=== PATIENT | male | born 1960 | race Two or more races ===

== ENCOUNTER 2016-12-07 12:44 | Day surgery (SDC) | payer OTHER ==
[2016-12-07] VITALS (7 sets, daily range): BP systolic 120–154; BP diastolic 72–92; PULSE 62–87; RESP 16–18; TEMP 97.6–98.4; O2SAT 95–99
[~2016-12-07] VITALS: Ht 170.2 cm; Wt 103.5 kg
[2016-12-07] MEDS ORDERED: ASPI81CH CHEW (13:33)
[2016-12-07] MEDS ORDERED: OMEP20TA PO (13:38)
[2016-12-07] MEDS ORDERED: ROSU1TAB10 PO (13:38)
[2016-12-07] MEDS ORDERED: CARV6.252 PO (13:38)
[2016-12-07] MEDS ORDERED: NITR0.4S SL (13:38)
[2016-12-07] MEDS ORDERED: RENATAB5 PO (13:38)
[2016-12-07] MEDS ORDERED: FURO80TA PO (13:38)
[2016-12-07] MEDS ORDERED: VITA100036 PO (13:38)
[2016-12-07] MEDS ORDERED: BRIL90TA PO (13:38)
[2016-12-07] MEDS ORDERED: SITA25 PO (13:38)
[2016-12-07] MEDS ORDERED: ROPI0.25 PO (13:38)
[2016-12-07] MEDS ORDERED: LOSA100T PO (13:38)
[2016-12-07] MEDS ORDERED: GABA600T PO (13:38)
[2016-12-07] MEDS ORDERED: HYDR-3801 PO (13:38)
[2016-12-07] MEDS ORDERED: ISOS30TA3 PO (13:38)
[2016-12-07] MEDS ORDERED: LYRI100C PO (13:38)
[2016-12-07 14:16] LABS: AUTOMATED NEUTROPHIL # 4.9 TH/MM3 (1.8-7.7); BASOPHIL # 0.1 TH/MM3 (0-0.2); EOSINOPHIL # 0.4 TH/MM3 (0-0.4); HEMATOCRIT 37.9 % (39.0-51.0); HEMO FLAGS DIFF FINAL; LYMPH % 21.4 % (9.0-44.0); LYMPHOCYTE # 1.7 TH/MM3 (1.0-4.8); MEAN CELL VOLUME 80.1 FL (80.0-100.0); MEAN CORPUSCULAR HEMOGLOBIN 25.4 PG (27.0-34.0); MEAN CORPUSCULAR HGB CONC 31.7 % (32.0-36.0); MONO % 10.8 % (0.0-8.0); NEUT % 61.8 % (16.0-70.0); PLATELET COUNT 205 TH/MM3 (150-450); RED BLOOD COUNT 4.73 MIL/MM3 (4.50-5.90); RED CELL DISTRIBUTION WIDTH 19.4 % (11.6-17.2); WHITE BLOOD COUNT 7.9 TH/MM3 (4.0-11.0)
[2016-12-07 14:28] LABS: PROTHROMBIN TIME - PATIENT 11.1 SEC (9.8-11.6)
[2016-12-07 14:31] LABS: BICARBONATE 33.1 MEQ/L (21.0-32.0); POTASSIUM 4.1 MEQ/L (3.5-5.1)
[2016-12-07] MEDS ORDERED: INSULIN HUMAN REGULAR 1,000 UNITS/10 ML VIAL SQ PRN (15:00)
[2016-12-07] MEDS ORDERED: METOPROLOL TARTRATE 25 MG TAB PO PRN (15:00)
[2016-12-07] MEDS ORDERED: LACTATED RINGER'S 1000 ML IV PRN (15:00)
[2016-12-07] MEDS ORDERED: POVIDONE IODINE 5% (ANTISEPSIS KIT) 4 APPLICATIONS EACH NARE PRN (15:00)
[2016-12-07] MEDS ORDERED: CHLORHEXIDINE GLUCONATE 2 % 1 PACK (2 CLOTHS) TOPICAL PRN (15:00)
[2016-12-07] MEDS ORDERED: NS 1000 ML IV SCH (15:00)
[2016-12-07] MEDS ORDERED: SODIUM CHLORID 0.9% 500 ML IV PRN (15:00)
[2016-12-07] MEDS ORDERED: CHLORHEXIDINE GLUCONATE 2 % 1 PACK (2 CLOTHS) TOPICAL SCH (15:00)
[2016-12-07] MEDS ORDERED: POVIDONE IODINE 5% (ANTISEPSIS KIT) 4 APPLICATIONS EACH NARE SCH (15:00)
[2016-12-07] MEDS ORDERED: ceFAZolin 2 GM PREMIX 50 ML IV SCH (15:00)
[2016-12-07] MEDS ORDERED: LORazepam 1 MG TAB SL SCH (15:00)
[2016-12-07] MEDS ORDERED: VANCOMYCIN 1000 MG/NS 250 ML IV SCH ×2 (15:00)
[2016-12-07] MEDS ORDERED: MUPIROCIN 2% OINT 1 APPLIC/GM SYR NASAL SCH (15:00)
[2016-12-07] MEDS ORDERED: PROPOFOL 200 MG/20 ML AMP IV ONE (15:37)
--- NOTE | 2016-12-07 16:38 | CATHPROC ---
Proton Therapy HIS Report Study Information Study Number Admission Scheduled Start Study Start [id number] Dec 07 2016 12:44PM 12/07/2016 Dec 07 2016 3:01PM [place] [facility] Electrophysiology Study Admit Source Facility Department Other [facility] - Housing Liaison Physician and Clinical Staff Initial Joselito Elizabeth V Belt Skiver Camuesandy, Kimberly,CAMPUS MONITOR Other Anesthesia, SENIOR FIREWALL ENGINEER Other Hosterman, Bridger,RT(R) Recorder Candi Sainz BSRPatricai Humphreyub Tariq WaldronRT(R) Equipment Time Red Cap Description Size Mfg Part Number Used/Scraped [id number] 15:50 Do It Original INDUSTRIES PACK, CCL CUSTOM * Used *[id number] 15:50 Do It Original PACER SALCEDO, LIMB * 2530 *[id number] Used [id number] 15:50 Contacts+ BLANKET,WARM AIR CCL * Used *[id number] [id number] 15:53 [employer] MED[employer] CATHETER, JSN, QUAD FR 5 Used *[id number] 15:53 [employer] MEDICAL CATHETER, JSN, QUAD FR 5 Used *[id number] 15:53 [employer] MEDICAL CATHETER, JSN, QUAD FR 5 Used *[id number] 15:54 [employer] MEDICAL CATHETER, JSN, QUAD FR 5 Used *[id number] [id number] 15:52 [employer] MEDICAL SHEATH, EPS, FR5 FAST CATH FR 5 Used *[id number] [id number] 15:52 [employer] SHEATH, EPS, FR5 FAST CATH FR 5 Used *[id number] 15:52 [employer] MED[employer] SHEATH, EPS, FR5 FAST CATH FR 5 Used *[id number] 15:52 [employer] MED[employer] SHEATH, EPS, FR6 FAST CATH FR 6 [id number] Used History: Current Medications Medication Dosage/Unit Route Frequency Last Date/Time Taken Statins (any) Beta Ronald ASA BRILLINTA CARVEDILOL LASIX HYDRALAZINE LYRICA Prevacid History: Allergies Allergy Reaction NKDA History: Risk Factors Family History of Hypertension Dyslipidemia Previous [place] Previous Heart Failure Premature CAD Yes Yes No Yes Yes Prior Valve Prior PCI Prior CABG Surgery No Yes No Cerebrovascular Peripheral Artery Chronic Lung On Dialysis Diabetes Diabetes Therapy Disease Disease Disease Yes No No Yes Yes Insulin History: Risk Factors Selection Items Diabetes Hyperlipidemia Prev Perc Coronary Intervention History: CV Disease Selection Items Cardiomyopathy History: Other Disease Selection Items CAD CHF HTN Renal Failure-Dialysis Labs Hgb (g/dl) Hct (%) RBC (MIL/MM3) WBC (l/cumm) Platelets (thousands) 11.60-17.00 35.00-51.00 4.00-5.90 4.00-11.00 150.00-450.00 12.0 37.9 4.7 7.9 205 Glucose (mg/dl) BUN (mg/dl) Creatinine (mg/dl) BUN:Creatinine (1:x) 74.00-106.00 7.00-18.00 0.50-1.30 10.00-20.00 90 40 8.3 4.8 Na (meq/l) K (meq/l) Cl (meq/l) CO2 (mmol/L) Ca (mg/dl) 136.00-145.00 3.50-5.10 98.00-107.00 21.00-32.00 8.50-10.10 141 4.1 100 33.1 9.3 PT (sec) PTT (sec) INR (PTT:PT) 9.80-11.60 24.30-30.10 0.90-1.10 11.1 31 1 Medication Medication Total Dose (Bolus/Oral) Medication Total Dosage/Unit 1% XYLOCAINE 20 mL Medications (Bolus/Oral) Medication Time Given Dosage/Unit Administered By Reason 1% XYLOCAINE 12/07/2016 4:18:43 PM 20 mL Anesthesia, SENIOR FIREWALL ENGINEER For pain 20 mL 1% XYLOCAINE given in lab by Anesthesia, SENIOR FIREWALL ENGINEER in Right Groin via Subcutaneous. Ordered by Joselito Padilla. Reason: For pain. Medication (Drip) Medication Time Given Dosage/Unit Concentration/Unit Diluent (ml) Solution ANCEF 12/07/2016 4:17:00 PM 2 g 2 g ANCEF given in lab by Anesthesia, SENIOR FIREWALL ENGINEER in Right Hand via Peripheral IV. Ordered by Joselito Padilla. Reason: As per physicians verbal order. IV Solutions 12/07/2016 3:43:27 PM 0 mL (IV) NaCl .9 IV Solutions given in lab by Anesthesia, SENIOR FIREWALL ENGINEER in Right Hand via Peripheral IV. Pump/Drip Flow = 50 ml /hr using NaCl .9. Ordered by Joselito Padilla. Reason: As per physicians verbal order. IV Solutions 12/07/2016 3:43:56 PM 0 mL (IV) NaCl .9 IV Solutions given in lab by Anesthesia, SENIOR FIREWALL ENGINEER in Right Forearm via Peripheral IV. Pump/Drip Flow = 50 ml/hr using NaCl .9. Ordered by Joselito Padilla. Reason: As per physicians verbal order. VANCOMYCIN DRIP 12/07/2016 4:17:00 PM 1 g 1 g VANCOMYCIN DRIP given in lab by Anesthesia, SENIOR FIREWALL ENGINEER in Right Hand via Peripheral IV. Ordered by Joselito Sewell. Reason: As per physicians verbal order. Initial Case Assessment Cardiovascular HR NIBP Chest Pain 72 162/69 0 Edema Present Skin color Skin None Normal Warm Dry Neurological State Oriented to time-place- Alert Moves all extremities person Respiration - General Respiration Rate SpO2 (%) (B/min) 20 100 Chronological Log Time Study Chronological Log 15:37:52 Patient arrived via Bed. 15:37:53 Patient Name, D.O.B, / Armband Verified By R.N. 15:37:55 Consent signed by the physician and the patient and verified by the Housing Liaison staff. 15:37:57 Pre-op and post- op instructions given; patient acknowledges understanding of instructions. 15:41:08 Lifevest removed and returned to DOC 15:41:35 Verbal Stimulation=2 Physical Stimulation=2 Airway=2 Respiration=2 TOTAL=10. (0=absent, 1=l imited, 2=present) 15:41:48 Anesthesia at bedside. Assumes care of patient. Brian SENIOR FIREWALL ENGINEER 15:41:58 Presedation assessment performed by Housing Liaison RN. Assessment: Initial Case, HR=72 BPM, EQEY=479/69 mmhg, Chest Pain=0, Edema=None, Color=Normal, Skin = Warm, Dry 15:42:00 Neurological: State=Alert, Ox3, MERCEDES Respiration: Resp=20 B/min, HxL1=548 % 15:42:02 Patient has been NPO for More than 6Hrs. 15:42:04 Skin Breakdown- none. AV fistula noted left arm 15:42:46 Patient Warmer Placed on the Table. 15:42:49 Disposable Defibrillator Pads Placed On Patient. 15:42:53 Shantelle Prominences Protected 15:42:56 A # 20 IV was noted in the Hand (right). Grade = ~GRADE~ 15:43:10 A # 20 IV was noted in the Forearm (right). Grade = ~GRADE~ IV Solutions given in lab by Anesthesia, SENIOR FIREWALL ENGINEER in Right Hand via Peripheral IV. Pump/Drip Flow = 50 ml/hr using NaCl 15:43:27 .9. Ordered by Joselito Padilla. Reason: As per physicians verbal order. IV Solutions given in lab by Anesthesia, SENIOR FIREWALL ENGINEER in Right Forearm via Peripheral IV. Pump/Drip Pradeep w = 50 ml/hr using 15:43:56 NaCl .9. Ordered by Joselito Padilla. Reason: As per physicians verbal order. 15:44:14 History and physical on the chart or being dictated. 15:44:18 Table restraints applied according to hospital policy 15:44:23 Right groin prepped with 2% chlorhexidine, and with a 3 min. waiting time. 15:44:25 Left groin prepped with 2% chlorhexidine, and with a 3 min. waiting time. 15:57:00 MD paged 16:01:51 Reference ECG taken 16:10:00 MD arrived. 2 g ANCEF given in lab by Anesthesia, SENIOR FIREWALL ENGINEER in Right Hand via Peripheral IV. Ordered by Joselito Padilla. Reason: As per 16:17:00 physicians verbal order. 1 g VANCOMYCIN DRIP given in lab by Anesthesia, SENIOR FIREWALL ENGINEER in Right Hand via Peripheral IV. Ordered by Joselito Padilla. 16:17:00 Reason: As per physicians verbal order. 16:18:27 Immediate Presedation assesment performed by physician. Time Out. Correct patient, procedure, procedure equipment, site and side verified with physici an present. Time 16:18:29 concurred by MD, individual staff and SENIOR FIREWALL ENGINEER. Time Out #2 - Consents verified, patient in correct position, all results are labled and displ ayed, safety precautions 16:18:35 taken, antibiotics administered. Time out concurred by MD, individual staff and SENIOR FIREWALL ENGINEER in proced ure 16:18:39 Case Start 20 mL 1% XYLOCAINE given in lab by Anesthesia, SENIOR FIREWALL ENGINEER in Right Groin via Subcutaneous. Ordered Joselito Rausch. 16:18:43 Reason: For pain. 16:19:05 Vascular access was obtained in the Fem Vein (right). 16:19:14 Vascular access was obtained in the Fem Vein (right). 16:19:14 Vascular access was obtained in the Fem Vein (right). 16:19:16 Vascular access was obtained in the Fem Vein (right). 16:19:23 A SHEATH, EPS, FR5 FAST CATH FR 5 was advanced into the Fem Vein (right) using the Percuta neous technique. 16:19:31 A SHEATH, EPS, FR5 FAST CATH FR 5 was advanced into the Fem Vein (right) using the Percuta neous technique. 16:19:31 A SHEATH, EPS, FR5 FAST CATH FR 5 was advanced into the Fem Vein (right) using the Percuta neous technique. 16:19:36 A SHEATH, EPS, FR6 FAST CATH FR 6 was advanced into the Fem Vein (right) using the Percuta neous technique. A CATHETER, JSN, QUAD FR 5 was advanced vis Fem Vein (right) and placed in the HRA. Placement was visually 16:19:51 confirmed under fluoroscopy. A CATHETER, JSN, QUAD FR 5 was advanced vis Fem Vein (right) and placed in the HIS. Placement was visually 16:20:03 confirmed under fluoroscopy. A CATHETER, JSN, QUAD FR 5 was advanced vis Fem Vein (right) and placed in the RVA. Placement was visually 16:20:14 confirmed under fluoroscopy. A CATHETER, JSN, QUAD FR 5 was advanced vis Fem Vein (right) and placed in the CS. Placement w as visually 16:20:25 confirmed under fluoroscopy. 16:20:56 EP study begun. 16:36:03 Ventricular tachycardia induced. 16:36:11 EP Study completed. 16:37:16 No case complications noted. 16:37:18 Cine recording checked. 16:37:24 Case End 16:37:40 Initial procedure has been completed. Beginning additional procedure. End Study - Contrast Media Used In Study Contrast Total Opened (mL) Total Used (mL) Total Wasted (mL) Unspecified 0 0 0 End Study - Maximum Contrast Load Max Contrast Load (mL) 62.0 End Study - Radiation Exposure Fluoro Time (minutes) 1.9 End Study - Patient Disposition Complications Transferred To Interventional Outcome No Telemetry Bed successful
[2016-12-07] MEDS ORDERED: VANCOMYCIN 500 MG VIAL ONE (16:45)
[2016-12-07] MEDS ORDERED: LIDOCAINE HCL 2% 50 ML VIAL ONE (16:45)
--- NOTE | 2016-12-07 17:25 | CATHPROC ---
Video[employer] HIS Report Study Information Study Number Admission Scheduled Start Study Start [id number] Dec 07 2016 12:44PM 12/07/2016 Dec 07 2016 4:39PM [place] Service Cardiac Pacer/ICD Admit Source Facility Department Other [facility] - [employer] Canvas Fabricator Physician and Clinical Staff Initial Joselito Elizabeth Consulting Practice Manager Any Richardson RN Other Anesthesia, ADULT SPECIALIST Other Camueiras, Kimberly,TRAVELING REPAIR ACCOUNTANT Recorder Candi Sainz BSRN Scrub Batt, Dale, RT(R) Procedures Performed Procedure Lead Insertion Equipment Time Mamma Logist Description Size Mfg Part Number Used/Scraped [employer]/ EP DEFIBRILLATOR, DYNAGEN MINI 17:15 D020 Used PACER ICD VR [employer]/ EP LEAD, ENDOTAK RELIANCE G 17:07 64CM 0296 Used PACER 64CM (DEFIB) INTRODUCER SET, FR9 PEEL- PLVN-9.0-38-24- 16:44 COOK/PACER * Used AWAY SHEATH VAD5-CVI 16:57 Needle Sponge Count 2 22 Used 17:17 Needle Sponge Count 2 22 Used 17:18 Needle Sponge Count 2 22 Used 17:18 Needle Sponge Count 20 200 Used 16:57 Needle Sponge Count 20 200 Used 17:17 Needle Sponge Count 20 200 Used 17:17 Needle Sponge Count 3 3 Used 16:56 Needle Sponge Count 3 3 Used 17:18 Needle Sponge Count 3 3 Used Equipment Model, Serial, Lot Number and Expiration Data Description Model Number Serial Number Lot Number Expiration Date DEFIBRILLATOR, DYNAGEN MINI D020 [id number] 01-19-2018 ICD VR LEAD, ENDOTAK RELIANCE G 64CM [id number] 08-11-2018 (DEFIB) History: Current Medications Medication Dosage/Unit Route Frequency Last Date/Time Taken Statins (any) Beta Ronald ASA BRILLINTA CARVEDILOL LASIX HYDRALAZINE LYRICA Prevacid History: Allergies Allergy Reaction NKDA History: Risk Factors Family History of Hypertension Dyslipidemia Previous [place] Previous Heart Failure Premature CAD Yes Yes No Yes Yes Prior Valve Prior PCI Prior CABG Surgery No Yes No Cerebrovascular Peripheral Artery Chronic Lung On Dialysis Diabetes Diabetes Therapy Disease Disease Disease Yes No No Yes Yes Insulin History: Risk Factors Selection Items Diabetes Hyperlipidemia Prev Perc Coronary Intervention History: CV Disease Selection Items Cardiomyopathy History: Other Disease Selection Items CAD CHF HTN Renal Failure-Dialysis Medication Medication Total Dose (Bolus/Oral) Medication Total Dosage/Unit 2% XYLOCAINE 50 mL Medications (Bolus/Oral) Medication Time Given Dosage/Unit Administered By Reason 2% XYLOCAINE 12/07/2016 5:03:43 PM 50 mL Joselito Padilla As per physicians verbal order 50 mL 2% XYLOCAINE given in lab by Joselito Padilla via Subcutaneous. Ordered by Joselito Padilla. Reason: As per physicians verbal order. right upper chest Final Case Assessment Cardiovascular HR NIBP 75 100/47 Edema Present Skin color Skin None Normal Warm Dry Neurological State Oriented to time-place- Alert Moves all extremities person Respiration - General Respiration Rate SpO2 (%) (B/min) 18 98 Chronological Log Time Study Chronological Log 16:39:00 Initial procedure has been completed. Beginning additional procedure. 16:40:55 Anesthesia remains at bedside. Brian BOWDEN 16:41:37 Bovie ground pad applied to: right thigh 16:42:00 2% CHLORHEXIDINE GLUCONATE WASH AND NASAL SWIPE DONE PRIOR TO PROCEDURE. 16:42:14 Pre-procedure assessment data was performed with the previous procedure. 16:44:50 Ancef and Vancomycin IV in progress. 16:51:26 Right Upper Chest Prepped Times Two. First Sponge And Instrument Count Done by Any Richardson, KENY. 16:51:36 Hypo's: 3, Sponges: 20, Bovie/scratch: 2 Sutures: 10, Blades: 1, Instruments: 26, Syveck Patches: ~SYVECK PATCH~ 17:03:26 Immediate Presedation assesment performed by physician. Time Out. Correct patient, procedure, procedure equipment, site and side verified with physici an present. Time 17:03:30 concurred by MD, individual staff and ADULT SPECIALIST. Time Out #2 - Consents verified, patient in correct position, all results are labled and displ ayed, safety precautions 17:03:35 taken, antibiotics administered. Time out concurred by MD, individual staff and ADULT SPECIALIST in proced ure 17:03:38 Case Start 50 mL 2% XYLOCAINE given in lab by Joselito Padilla via Subcutaneous. Ordered by Joselito Padilla. R medardo: As per 17:03:43 physicians verbal order. right upper chest 17:03:50 Surgical Incision Made. 17:03:55 A pocket was created at the R Upper Chest. 17:04:47 Vascular access was obtained in the Subclav. Vein (Rt). A INTRODUCER SET, FR9 PEEL-AWAY SHEATH * was advanced into the Subclav. Vein (Rt) using the Pe rcutaneous 17:06:02 technique. 17:08:23 A LEAD, ENDOTAK RELIANCE G 64CM (DEFIB) 64CM was inserted and positioned in the RV. 17:08:36 Lead placement verified under fluoroscopy 17:09:53 The RV lead impedance and threshold being tested. 17:10:01 The RV lead was sutured to the fascia. 17:14:11 Pocket flushed with antibiotic solution 17:15:40 A DEFIBRILLATOR, DYNAGEN MINI ICD VR was connected and placed in the pocket. Second Sponge And Instrument Count Done by Any Richardson RN. 17:16:33 Hypo's: 3, Sponges: 20, Bovie/scratch: 2 Sutures: ~SUTURE~, Blades: 1, Instruments: ~INSTRU~, Syveck Patches: ~SYVECK PATCH~ 17:17:15 Implant Procedure was performed. 17:17:26 A ICD Implant . (Single) 17:17:39 The pocket was closed. The Final Sponge And Instrument Count Done by Joselito Padilla. 17:17:46 Hypo's: 3, Sponges: 20, Bovie/scratch: 2 Sutures: 10, Blades: 1, Instruments: 26, Syveck Patches: 0 17:20:57 Sterile dressing applied to site Assessment: Final Case, HR=75 BPM, JSAJ=004/47 mmhg, Edema=None, Color=Normal, Skin = Warm, Dr garcia 17:21:03 Neurological: State=Alert, Ox3, MERCEDES Respiration: Resp=18 B/min, SpO2=98 % 17:22:34 Sheath(s) left in place, will be removed in Holding Area 17:23:04 No case complications noted. 17:23:12 Cine recording checked. 17:23:17 Holding Area notified of successful intervention. 17:23:19 Bedside Report will be given. 17:23:23 Implantable Device card placed in patient's chart. 17:23:26 Defibrillator and ground pads removed. Skin intact. 17:23:50 Case End 17:24:49 [facility] moved to [facility] in [facility] condition. End Study - Contrast Media Used In Study Contrast Total Opened (mL) Total Used (mL) Total Wasted (mL) Unspecified 0 0 0 End Study - Radiation Exposure Fluoro Time (minutes) 0.8 End Study - Patient Disposition Complications Transferred To Interventional Outcome No Telemetry Bed successful
[2016-12-07] MEDS ORDERED: MIDAZOLAM HCL 2 MG/2 ML VIAL ONE (17:35)
--- NOTE | 2016-12-07 17:59 | PD.CARD ---
SINGLE CHAMBER DEFIB IMPLANT PROCEDURE DATE: Dec 07, 2016 NYHA Classification: Class II (Mild) Single Chamber Defib Implant PROCEDURE: Single chamber defibrillator implantation and device testing. INDICATIONS: Mr. Menard is a 56 -year-old Other male with hx of congestive heart failure, ejection fraction 30%, coronary artery disease, to undergo defibrillator implantation for sudden primary prevention. The risks, the nature and the benefit of the procedure are clearly stated to him . Risks include pneumothorax, cardiac perforation, stroke and even . He understood and agreed to proceed. PROCEDURE: After written, informed consent was obtained, the patient was brought to the EP Lab where he was prepped and draped in the sterile fashion. Conscious sedation was initiated and maintained throughout the procedure by anesthesiologist. Once sedation was verified, the left infraclavicular area was anesthetized with 2% Xylocaine. Using modified Seldinger technique, the left subclavian vein was cannulated on one occasion and one guide wire was advanced. Then, using #11 blade scalpel, a 3-cm incision was made two fingerbreadths below left clavicle. This incision was then taken down to the deep fascial layer using Bovie cautery and blunt dissection. Into the inferomedial direction, a device pocket was dissected, then the wire was dissected into the pocket. A 2-0 Vicryl suture was placed around the wires to prevent bleeding. At this point, over the wire, the 9- Armenian dilator and introducer was advanced. As dilator and wire were removed, an active fixation right ventricular pacing, sensing and defibrillatory lead was advanced. After adequate pacing and sensing thresholds were obtained, the lead was secured in the pocket with #2 Ethibond suture. At that point, the pocket was copiously irrigated with antibiotic solution. The leads were connected to the generator and placed into the pocket. I did proceed with wound closure. The deep fascial layer was approximated with 2-0 Vicryl suture in a continuous fashion. The subcutaneous layer was approximated with 2-0 Vicryl suture in a continuous fashion. The subcuticular layer was approximated with 2-0 Vicryl suture in a continuous fashion. Dermabond adhesive was applied to the wound, followed by a sterile pressure dressing. There was no complication. The patient tolerated procedure. Blood loss minimal. 1. Implanted Hardware: The implanted defibrillator generator is a [employer], model number D020, serial number [id number]. The right ventricular pacing, sensing and defibrillatory lead is a [place] [employer] model number 0296 , serial number [id number]. 2. Thresholds: The right ventricular pacing threshold in the bipolar mode was 0.8volts at 0.5 milliseconds, lead impedance 633 ohms and R-wave at 7.5 mV. 3. Settings: The device set in VVI 40 defibrillatory portion for two zones, one zone for ventricular tachycardia between 170 and 250 beats per minute. Initial therapy consists of one burst of ATP, one ramp, 81%, 10 pulse, 10 millisecond decremental, followed by 20, then 30 and all subsequent shocks at 40 joules defibrillatory shock, the second zone for ventricular fibrillation above 250 beats per minute, first therapy at 30 and all subsequent shocks at 40 joules defibrillatory shock. CONCLUSIONS: Successful defibrillator implantation. COMMENT AND RECOMMENDATIONS: The patient will be transferred to the telemetry unit, will be observed and when stable can be discharged home. Joselito Padilla MD Dec 07, 2016 17:59
[2016-12-07] MEDS ORDERED: ATROPINE SULFATE 1 MG/ML VIAL IV PRN (18:00)
[2016-12-07] MEDS ORDERED: LORazepam 2 MG/ML VIAL IV PRN (18:00)
[2016-12-07] MEDS ORDERED: METOCLOPRAMIDE HCL 10 MG/2 ML VIAL IV PRN (18:00)
[2016-12-07] MEDS ORDERED: oxyCODONE/ACETAMINOPHEN 5 MG/325 MG TAB PO PRN ×2 (18:00)
[2016-12-07] MEDS ORDERED: BACITRACIN OINT 0.9 GM PKT TOP ONE (18:00)
[2016-12-07] MEDS ORDERED: ONDANSETRON HCL 4 MG/2 ML VIAL IV PRN (18:00)
[2016-12-07] MEDS ORDERED: SODIUM CHLOR 0.9% 250 ML INJ 250 ML IV PRN (18:00)
[2016-12-07] MEDS ORDERED: LIDOCAINE HCL 1% 50 ML VIAL INFIL PRN (18:00)
--- NOTE | 2016-12-07 19:03 | RADRPT ---
EXAM DATE/TIME: 12/07/2016 18:14 [place] COMPARISON: No previous studies available for comparison. INDICATIONS : Status post defibrillator placement MEDICAL HISTORY : None. SURGICAL HISTORY : None. ENCOUNTER: Initial ACUITY: 1 day PAIN SCORE: 0/10 LOCATION: Bilateral chest FINDINGS: Pacer/defibrillator overlies right ventricle. No pneumothorax. There is basilar opacity, most charact eristic of scarring and atelectasis with right-sided pleural thickening or small effusion. CONCLUSION: 1. Pacer/defibrillator lead tip overlies right ventricle without pneumothorax. Pietro Maldonado MD on December 07, 2016 at 19:01 Board Certified Radiologist. This report was verified electronically.
--- NOTE | 2016-12-07 20:21 | MA ---
cc: YENI DUFF M.D. DATE 12/07/2016 Electrophysiology study, CS cannulation. INDICATION Mr. Menard is a 56-year-old gentleman with history of coronary artery disease, low ejection fraction, referred for electrophysiology study and device insertion. The risks, the nature and the benefit of the procedure are clearly stated to him. The risks include pneumothorax, cardiac perforation, stroke, need for open heart surgery and even . The patient understood and agreed to proceed. PROCEDURE DETAILS After written informed consent was obtained, the patient was brought to the EP lab where he was prepped and draped in the usual sterile fashion. Conscious sedation was initiated and maintained throughout the procedure by anesthesiologist. Once sedation verified, the right inguinal area was anesthetized with 2% Xylocaine. Using modified Seldinger technique, the right femoral vein was cannulated on four occasions and four guidewires were advanced. Over the wire three 5 and a 6-Lithuanian Hemaquets were advanced. Then under fluoroscopic guidance through the 5 and 6-Lithuanian Hemaquet, four 5-Lithuanian [employer] curved quadripolar electrophysiology catheters were advanced and positioned on the His, upper right atrium, coronary sinus and right ventricular apex. Basic interval was measured. They were within normal limits. At this point atrial pacing protocol was performed. Atrial pacing protocol consisted of incremental atrial pacing as well as program stimulation with 1400 cycle length and up to one extra stimuli delivered. No tachyarrhythmia was induced. Then ventricular pacing protocol was performed. There was no VA conduction. During ventricular pacing protocol self-limited ventricular tachycardia was induced. Blood pressure dropped during the episode. At that point the procedure was complete. All catheters were removed. The patient going to be kept on the table and a single chamber defibrillator will be implanted for sudden primary prevention. No incident to report. The patient tolerated the procedure. Blood loss minimal. IMPRESSION 1. Electrocardiogram. At baseline the patient was in sinus. Postprocedure electrocardiogram was unchanged. 2. Basic interval. Base cycle length was around 980, AH around 90 and HV around 50 milliseconds. 3. Left atrial pacing protocol. Wenckebach of the node was around 340 milliseconds. ERP of the node was 600-200 milliseconds. No tachyarrhythmia was induced. 4. Ventricular pacing protocol. There was no VA conduction. A long episode of self-limited ventricular tachyarrhythmia was induced. CONCLUSION Self-limited ventricular tachycardia. COMMENT AND RECOMMENDATIONS The patient has coronary artery disease with congestive heart failure, ejection fraction 30% on optimal medical treatment for over three months. A single chamber defibrillator will be implanted for sudden primary prevention. MD YEN Aparicio/NA /6:13 PM /7:58 PM
[2016-12-07] MEDS ORDERED: GABAPENTIN 300 MG CAP PO SCH (21:00)
[2016-12-07] MEDS: CARVEDILOL 6.25 MG TAB PO SCH (21:08)
[2016-12-07] MEDS: FUROSEMIDE 80 MG TAB PO SCH (21:08)
[2016-12-07] MEDS: TICAGRELOR 90 MG TAB PO SCH (21:08)
[2016-12-08] VITALS (15 sets, daily range): BP systolic 108–149; BP diastolic 53–78; PULSE 57–76; RESP 18; TEMP 98.2–98.5; O2SAT 96
[2016-12-08] MEDS: ceFAZolin 2 GM PREMIX 50 ML IV SCH ×2 (00:20→08:37)
[2016-12-08] MEDS: CARVEDILOL 6.25 MG TAB PO SCH (08:40)
[2016-12-08] MEDS: TICAGRELOR 90 MG TAB PO SCH (08:41)
[2016-12-08] MEDS: FUROSEMIDE 80 MG TAB PO SCH (08:42)
[2016-12-08] MEDS ORDERED: CHOLECALCIFEROL (VIT D3) 1000 UNIT TAB PO SCH (09:00)
[2016-12-08] MEDS ORDERED: ISOSORBIDE MONONITRATE 30 MG TAB PO SCH (09:00)
[2016-12-08] MEDS ORDERED: ASPIRIN 81 MG CHEW TAB CHEW SCH (09:00)
[2016-12-08] MEDS ORDERED: NON-FORMULARY DRUG (Omeprazole 20 MG) PO SCH (09:00)
[2016-12-08] MEDS ORDERED: NON-FORMULARY DRUG (Rosuvastatin 40 MG) PO SCH (09:00)
[2016-12-08] MEDS ORDERED: PANTOPRAZOLE SOD 20 MG DELAYED RELEASE TAB PO SCH (09:00)
[2016-12-08] MEDS ORDERED: LOSARTAN 50 MG TAB PO SCH (09:00)
[2016-12-08] MEDS ORDERED: hydrALAZINE HCL 100 MG TAB PO SCH (09:00)
[2016-12-08] MEDS ORDERED: PREGABALIN 100 MG CAP PO SCH (09:00)
[2016-12-08] MEDS ORDERED: ATORVASTATIN 80 MG TAB PO SCH (09:00)
[2016-12-08] MEDS ORDERED: SODIUM CHLOR 0.9% 1000 ML INJ 1,000 ML IV PRN ×3 (10:42)
[2016-12-08] MEDS ORDERED: SODIUM CHLORIDE 0.9% FLUSH 10 ML FLUSH IV FLUSH PRN (10:45)
[2016-12-08] MEDS ORDERED: HEPARIN SODIUM - IV 10,000 UNITS/10 ML VIAL IVF PRN (10:45)
[2016-12-08] MEDS ORDERED: GELATIN 12 MM/7 MM FOAM TOP PRN (10:45)
[2016-12-08] MEDS ORDERED: HEPARIN SODIUM - IV 10,000 UNITS/10 ML VIAL PRN (10:45)
[2016-12-08] MEDS ORDERED: NITROGLYCERIN 0.4 MG SL 25 TABS/BTL SL PRN (10:45)
[2016-12-08] MEDS ORDERED: ALBUMIN HUMAN 25% 25 GM/100 ML BAGP IV PRN (10:45)
[2016-12-08] MEDS ORDERED: ACETAMINOPHEN 325 MG TAB PO PRN (10:45)
[2016-12-08] MEDS ORDERED: ONDANSETRON HCL 4 MG/2 ML VIAL IV PRN (10:45)
[2016-12-08] MEDS ORDERED: cloNIDine HCL 0.1 MG TAB PO PRN (10:45)
[2016-12-08] MEDS ORDERED: GENTAMICIN SULFATE (DIALYSIS USE ONLY) 20 MG/2 ML VIAL IV PRN (10:45)
[2016-12-08] MEDS ORDERED: diphenhydrAMINE HCL 25 MG CAP PO PRN (10:45)
[2016-12-08] MEDS ORDERED: MANNITOL 12.5 GM/50 ML VIAL IV PRN (10:45)
--- NOTE | 2016-12-08 11:32 | EKG ---
Date Performed: 12/07/2016 Time Performed: 20:12:08 PTAGE: 56 years EKG: Sinus rhythm Short IN interval Possible inferior infarct - age undetermined Lateral T wave changes may be due to myocardial ischemia Abnormal ECG Compared to prior tracing no significant change PREVIOUS TRACING : 12/07/2016 14.10 DOCTOR: Silas Sanders Interpretating Date/Time 12/08/2016 11:30:31
--- NOTE | 2016-12-08 11:43 | EKG ---
Date Performed: 12/08/2016 Time Performed: 03:23:32 PTAGE: 56 years EKG: Normal Sinus rhythm Nonspecific T-wave abnormality, cannot exclude ischemia PREVIOUS TRACING : 12/07/2016 20.12 T-wave abnormality in V5 and V6 are more prominent fr om the prior tracing. Clinical correlation needed. DOCTOR: Silas Sanders Interpretating Date/Time 12/08/2016 11:42:44
--- NOTE | 2016-12-08 11:43 | EKG ---
Date Performed: 12/07/2016 Time Performed: 14:10:50 PTAGE: 56 years EKG: Sinus bradycardia Possible old anterior infarct Poor R-wave progression, possible old anter oseptal myocardial infarction Lateral T-wave abnormalities, cannot exclude ischemia NO PREVIOUS TRACING DOCTOR: Silas Sanders Interpretating Date/Time 12/08/2016 11:41:30
--- NOTE | 2016-12-08 14:04 | HHI.PR ---
Subjective Remarks Feeling ok Objective Vital Signs Date Time Temp Pulse Resp B/P Pulse Ox O2 Delivery O2 Flow Rate FiO2 12/08/16 13:00 65 12/08/16 12:00 62 12/08/16 11:00 68 12/08/16 10:00 73 12/08/16 09:00 65 12/08/16 08:00 98.2 65 18 149/53 96 12/08/16 08:00 72 12/08/16 08:00 68 12/08/16 07:00 66 12/08/16 06:00 57 12/08/16 05:00 68 12/08/16 04:00 63 12/08/16 03:00 98.4 65 18 123/70 96 12/08/16 03:00 76 12/08/16 02:00 58 12/08/16 01:00 75 12/08/16 00:00 66 12/07/16 23:00 97.9 69 18 120/72 95 12/07/16 23:00 70 12/07/16 22:00 68 12/07/16 21:00 87 12/07/16 20:00 75 12/07/16 19:00 85 12/07/16 19:00 97.6 76 18 154/92 97 12/07/16 18:00 98.2 64 18 129/77 99 12/07/16 18:00 68 I/O 12/07/16 12/07/16 12/07/16 12/08/16 12/08/16 12/08/16 07:00 15:00 23:00 07:00 15:00 23:00 Intake Total 240 ml Output Total 300 ml Balance -60 ml Intake Oral 240 ml Output Urine Total 300 ml Result Diagram: 12/07/16 1323 12/07/16 1323 Imaging Alert, fully oriented, on HD Lungs: ventilated Heart: S1, S2 regular, no gallop Abdomen: soft, no mass Ext: no edema Clean surgical wound Last Impressions Chest X-Ray 12/07/16 0000 Signed Impressions: Service Date/Time: Wednesday, December 07, 2016 18:14 - CONCLUSION: 1. Pacer/defibrillator lead tip overlies right ventricle without pneumothorax. Pietro Maldonado MD Current Medications Medications (Trade) Dose Ordered Sig/Genoveva Route Start Time Stop Time Status Last Admin Lactated Ringer's 1,000 ml @ 30 mls/hr Q24H PRN IV 12/07/16 15:00 12/10/16 14:59 Sodium Chloride 500 ml @ 30 mls/hr [id number] PRN IV 12/07/16 15:00 12/10/16 14:59 (NS 1000 ml Inj) 1,000 ml @ 30 mls/hr Q24H IV 12/07/16 15:00 (Percocet 5-325 Mg) 1 tab Q4H PRN PO 12/07/16 18:00 (Percocet 5-325 Mg) 2 tab Q4H PRN PO 12/07/16 18:00 12/07/16 21:09 (Ativan Inj) 0.5 mg UNSCH PRN IV 12/07/16 18:00 12/08/16 17:59 Atropine Sulfate 0.5 mg 0.5 mg UNSCH PRN IV 12/07/16 18:00 (NS 250 ml Inj) 250 ml @ 500 mls/hr ONCE PRN IV 12/07/16 18:00 12/08/16 17:59 (Zofran Inj) 4 mg Q4H PRN IV 12/07/16 18:00 Lidocaine HCl 10 ml 10 ml UNSCH PRN INFIL 12/07/16 18:00 12/08/16 17:59 (Ancef 2 Gm Premix) 50 ml @ 100 mls/hr Q8H IV 12/08/16 00:00 12/08/16 16:29 12/08/16 08:37 (Aspirin Chew) 81 mg DAILY CHEW 12/08/16 09:00 12/08/16 08:40 (Coreg) 6.25 mg BID PO 12/07/16 21:00 12/08/16 08:40 (Vitamin D3) 1,000 units DAILY PO 12/08/16 09:00 12/08/16 08:40 (Lasix) 80 mg BID PO 12/07/16 21:00 12/08/16 08:42 (Neurontin) 600 mg HS PO 12/07/16 21:00 12/07/16 21:08 (Apresoline) 50 mg TID PO 12/08/16 09:00 12/08/16 08:40 (Imdur) 30 mg DAILY PO 12/08/16 09:00 12/08/16 08:40 (Cozaar) 100 mg DAILY PO 12/08/16 09:00 12/08/16 08:41 (Lyrica) 100 mg DAILY PO 12/08/16 09:00 12/08/16 09:43 (Requip) 0.25 mg HS PO 12/07/16 21:00 12/07/16 21:08 (Januvia) 25 mg DAILY PO 12/08/16 09:00 12/08/16 08:41 (Brilinta) 90 mg BID PO 12/07/16 21:00 12/08/16 08:41 (Lipitor) 80 mg DAILY PO 12/08/16 09:00 12/08/16 08:41 Pantoprazole Sodium 20 mg 20 mg DAILY PO 12/08/16 09:00 12/08/16 08:39 (NS 1000 ml Inj) 1,000 ml @ 0 mls/hr Q0M PRN IV 12/08/16 10:42 Heparin Sodium (Porcine) 8000 units 8,000 units UNSCH PRN IVF 12/08/16 10:45 Sodium Chloride 1,000 ml @ 200 mls/hr Q5H PRN IV 12/08/16 10:42 (NS 1000 ml Inj) 1,000 ml @ 0 mls/hr Q0M PRN IV 12/08/16 10:42 (Mannitol Inj) 12.5 gm UNSCH PRN IV 12/08/16 10:45 (Albumin 25% Inj) 25 gm UNSCH PRN IV 12/08/16 10:45 (NS Flush) 5 ml UNSCH PRN IV FLUSH 12/08/16 10:45 (Heparin Inj) UNSCH PRN .XX 12/08/16 10:45 (Gentamicin (Dialysis) Inj) 20 mg UNSCH PRN IV 12/08/16 10:45 (Zofran Inj) 4 mg UNSCH PRN IV 12/08/16 10:45 (Tylenol) 650 mg UNSCH PRN PO 12/08/16 10:45 (Benadryl) 25 mg UNSCH PRN PO 12/08/16 10:45 (Nitrostat Sl) 0.4 mg UNSCH PRN SL 12/08/16 10:45 (Catapres) 0.1 mg UNSCH PRN PO 12/08/16 10:45 (Gelfoam 12 Mm/7 Mm Top) 1 foam UNSCH PRN TOP 12/08/16 10:45 Assessment and Plan Problem List: (1) CHF (congestive heart failure) Status: Acute Plan: On optimal medical management (2) ICD (implantable cardioverter-defibrillator) in place Status: Acute Plan: Device well functioning Clean surgical wound Can be DH Follow up as scheduled Joselito Padilla MD Dec 08, 2016 14:04
--- NOTE | 2016-12-08 14:05 | MB ---
cc: FARIBA GOMEZ MD DATE OF CONSULTATION 12/08/2016 REASON FOR CONSULTATION End-stage renal disease on hemodialysis for management. HISTORY OF PRESENT ILLNESS This is a 56-year-old male with a past medical history of hypertension, ischemic heart disease, congestive heart failure, chronic anemia, end-stage renal disease on hemodialysis three times per week for the last 2-1/2 years who was admitted for insertion of a single chamber defibrillator. I was called to see the patient for the management of dialysis. The patient has been on hemodialysis Monday, and Monday. He has been following Dr. Bennett and getting dialysis in [facility]. The patient has history of low ejection fraction and he has been following with cardiology and it was recommended to get defibrillator implantation. The patient underwent the procedure yesterday and it was uneventful. He has mild pain at the site of the procedure. Other than that, he is very stable with no shortness of breath or chest pain. No nausea or vomiting. PAST MEDICAL HISTORY 1. Hypertension 2. Ischemic heart disease 3. Congestive heart failure 4. Chronic anemia 5. End-stage renal disease on hemodialysis three times per week. PAST SURGICAL HISTORY 1. Left arm AV fistula surgery 2. Just has a defibrillator insertion yesterday 3. He had cardiac catheterization. REVIEW OF SYSTEMS There is no history of fever. No shortness of breath. No headache, dizziness or blurring of vision. No chest pain or palpitations. No nausea or vomiting. No abdominal pain. No history of diarrhea. SOCIAL HISTORY The patient is . Currently he does not smoke. FAMILY HISTORY Noncontributory ALLERGIES NO KNOWN DRUG ALLERGIES. MEDICATIONS Currently he is on: 1. Furosemide 80 mg b.i.d. 2. Coreg 6.25 mg t.i.d. 3. Brilinta 90 mg b.i.d. 4. Cephazolin was given and Vancomycin was given yesterday. 5. Lorazepam 1 mg relocation director 6. Aspirin 81 mg once a day 7. Vitamin D3 1000 units daily 8. Imdur 330 mg once a day 9. Cozaar 100 mg daily 10. Lyrica 100 mg once a day 11. Januvia 25 mg daily 12. Atorvastatin 80 mg q.h.s. 13. Protonix 20 mg once a day 14. Neurontin 600 mg q.h.s. 15. Requip 0.25 mg q.h.s. 16. Cephazolin one gram IV q8h PHYSICAL EXAM On examination, the patient is awake and alert. He is sitting in the chair not in acute distress. VITAL SIGNS: His last blood pressure was 149/53, temperature is 98.2, oxygen saturation 96%. HEAD, EYES, EARS, NOSE, AND THROAT: Pupils equally reacting to light. Nonicteric sclera. Conjunctivae normal. NECK: Supple. JVD is not elevated. LUNGS: The patient has bilateral good air entry with occasional wheezing. HEART: S1, S2, regular rhythm. ABDOMEN: Soft, lax and distended. No tenderness. Bowel sounds positive. EXTREMITIES: He has mild edema in the legs and the left arm has an AV fistula with a good bruit. INVESTIGATIONS WBC count 7.9, hemoglobin 12.0, platelet count of 205. Sodium 141, potassium 4.1, chloride 100, bicarb 33.1, BUN 40, creatinine 8.3, calcium 9.3, INR is 1.0. IMAGING STUDIES The patient had a chest x-ray done yesterday which shows no hemothorax and defibrillator in place. ASSESSMENT/PLAN 1. Post insertion of defibrillator 2. End-stage renal disease on hemodialysis 3. Ischemic heart disease and congestive heart failure 4. Mild anemia 5. History of hypertension. Patient has a stable blood pressure and is due for dialysis today. His potassium was normal. Hemoglobin is 12. I already arranged for his dialysis and he is going for dialysis soon and after that he will possibly be discharged if he remains stable. The patient will continue his hemodialysis at [facility] and he will follow with Dr. Bennett. Thank you for the consultation. MD KEN Singh/IVELISSE /10:38 AM /12:42 PM
[2016-12-08] MEDS ORDERED: OXYC1TAB63 PO (14:12)
[2016-12-08] MEDS ORDERED: CEPH-460 PO (14:12)
== END 2016-12-08 14:55 | disposition home or self-care (01) ==
LOC: HDOC 12:44 → HDIC 12:45 → HCIN 17:55 → HDOC 12-08 14:55
PROVIDERS: ATTEND Internal Medicine Interventional Cardiology
DX: I13.2 Hypertensive heart and chronic kidney disease with heart failure and with stage 5 chronic kidney disease, or end stage renal disease (principal); I50.9 Heart failure, unspecified; N18.6 End stage renal disease; I25.10 Atherosclerotic heart disease of native coronary artery without angina pectoris; I25.5 Ischemic cardiomyopathy; D50.0 Iron deficiency anemia secondary to blood loss (chronic); Z99.2 Dependence on renal dialysis
CPT/HCPCS: 00530; 33249; 71010; 80048; 82948; 85025; 85610; 85730; 86850; 86900; 86901; 90935; 93005; 93620; C1722; C1730; C1895; J0690; J2250; J3010; J3370; J7050